=== PATIENT | male | born 1980 | race Caucasian/White ===

== ENCOUNTER 2020-03-16 08:12 | Emergency (ER) | payer OTHER ==
[~2020-03-16] VITALS: Ht 172.7 cm; Wt 75.3 kg
[~2020-03-16 08:12] MED LIST: DIAZ5TAB49 PO; ENLP10T PO; PANT40TA2 PO
--- NOTE | 2020-03-16 08:48 | ED Abdominal Pain ---
General Chief Complaint: General Problems/Pain Stated Complaint: BACK AND ABD PAIN Nursing Triage Note: PT AMB TO [facility] 5 WITH COMPLAINT OF LOW BACK PAIN AND INDIGESTION/ABD PAIN. STATES HAS HAD INDIGESTION FOR 1.5 WEEKS THAT STARTED ABOVE THE UMBILICUS AND HAS NOW MOVED DOWN TO [facility]. Sepsis Screen: No Definite Risk Source of Information: Patient History of Present Illness Date Seen by Provider: March 16, 2020 Time Seen by Provider: 08:21 Initial Comments PT ARRIVES VIA POV FROM HOME C/O DIFFUSE LOWER BACK PAIN--DOES HAVE HISTORY OF CHRONIC BACK PAIN C/O LEFT GROIN PAIN--RADIATES FROM UMBILICUS TO LEFT GROIN PAIN ONGOING FOR 1 1/2 WEEKS PAIN COMES AND GOES, IS WORSE WITH SITTING HAS NOT TAKEN ANYTHING FOR PAIN STATES HE HAS STARTED GOING TO THE GYM AGAIN IN THE LAST COUPLE OF WEEKS, BUT NO ACTUAL INJURY NO FEVER NO URINARY SYMPTOMS + NAUSEA, NO VOMITING. NORMAL BM TODAY NO PROBLEMS EATING OR DRINKING-HAD WATER JUST PRIOR TO ARRIVAL NO HISTORY OF SIMILAR HAS NOT TAKEN ANYTHING FOR PAIN NO PRIOR ABDOMINAL SURGERIES PCP: DR. FRYE--HAS SEEN ONCE TO ESTABLISH CARE. 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 Allergies and Home Medications Allergies Coded Allergies: No Known Drug Allergies (Unverified , 09/26/14) Home Medications Cyclobenzaprine HCl 10 Mg Tablet, 10 MG PO Q8H PRN for SPASMS Prescribed by: CHUY REDDY on 03/16/20 09 Diazepam 5 Mg Tablet, 5 MG PO PRN, (Reported) Enalapril Maleate 10 Mg Tab, 5 MG PO DAILY, (Reported) Meloxicam 15 Mg Tablet, 15 MG PO DAILY Prescribed by: CHUY REDDY on 03/16/20 0952 Pantoprazole Sodium 40 Mg Tablet.dr 40 MG PO DAILY Prescribed by: MARIELLA SLOAN on 10/09/15 1332 Patient Home Medication List Home Medication List Reviewed: Yes Review of Systems Review of Systems Constitutional: no symptoms reported Respiratory: No Symptoms Reported Cardiovascular: No Symptoms Reported Gastrointestinal: See HPI, Abdominal Pain; Denies Constipated, Denies Diarrhea; Nausea; Denies Poor Fluid Intake, Denies Vomiting Genitourinary: See HPI; Denies Burning, Denies Drainage, Denies Frequency; Flank Pain; Denies Hematuria, Denies Incontinence, Denies Pain, Denies Urgency Musculoskeletal: see HPI, back pain Skin: no symptoms reported; No rash Psychiatric/Neurological: No Symptoms Reported Endocrine: No Symptoms Reported Hematologic/Lymphatic: No Symptoms Reported Past Gcavkwt-Fquhpx-Sffcyz Hx Past Med/Social Hx: Reviewed and Corrections made Patient Social History Alcohol Use: Regular Use Recreational Drug Use: Yes (THC) Smoking Status: Never a Smoker Recent Foreign Travel: No Contact w/Someone Who Travel: No Recent Infectious Disease Expo: No Immunizations Up To Date Tetanus Booster (TDap): Unknown PED Vaccines UTD: Yes Seasonal Allergies Seasonal Allergies: Yes Past Medical History Surgeries: Yes (LEFT ACL RECONSTRUCTION AND REVISION, WISDOM TEETH; EGD 2014) Orthopedic Respiratory: No Cardiac: Yes Hypertension Neurological: No Genitourinary: No Gastrointestinal: Yes Gastroesophageal Reflux, Hiatal Hernia Musculoskeletal: Yes (RT HUMERUS BENIGN TUMOR;LEFT KNEE ACL SURGERY) Chronic Back Pain Endocrine: No HEENT: No Cancer: No Psychosocial: No Integumentary: No Blood Disorders: No Physical Exam Vital Signs Vital Signs - First Documented 03/16/20 08:20 Temp 36.3 Pulse 114 Resp 20 B/P (MAP) 152/120 (131) Pulse Ox 99 O2 Delivery Room Air Capillary Refill : Less Than 3 Seconds Height/Weight/BMI Height: 5'8.00" Weight: 147lbs. oz. 66.719268ki; 25.00 BMI Method:Stated General Appearance: WD/WN, no apparent distress, other (WALKS UPRIGHT AND MOVES QUICKLY WITHOUT DIFFICULTY. TALKS NON-STOP AT GREAT LENGTH) Neck: normal inspection Respiratory: normal breath sounds, no respiratory distress, no accessory muscle use Cardiovascular: regular rate, rhythm, no murmur Gastrointestinal: normal bowel sounds, soft, no organomegaly, no pulsatile mass; No distended, No guarding, No rebound; tenderness (MILD LLQ AND LEFT FLANK TENDERNESS); No hernia, No mass Extremities: normal inspection Back: no vertebral tenderness, CVA tenderness (L) Neurologic/Psychiatric: committee member II-XII nml as tested, no motor/sensory deficits, alert, normal mood/affect, oriented x 3 Skin: normal color, warm/dry; No rash Progress/Results/Core Measures Results/Orders Lab Results Laboratory Tests Test 03/16/20 08:50 03/16/20 09:19 Range/Units White Blood Count 8.0 4.3-11.0 10^3/uL Red Blood Count 4.98 4.35-5.85 10^6/uL Hemoglobin 15.2 13.3-17.7 G/DL Hematocrit 41 40-54 % Mean Corpuscular Volume 82 80-99 FL Mean Corpuscular Hemoglobin 31 25-34 PG Mean Corpuscular Hemoglobin Concent 37 H 32-36 G/DL Red Cell Distribution Width 12.7 10.0-14.5 % Platelet Count 284 130-400 10^3/uL Mean Platelet Volume 8.9 7.4-10.4 FL Neutrophils (%) (Auto) 77 H 42-75 % Lymphocytes (%) (Auto) 16 12-44 % Monocytes (%) (Auto) 7 0-12 % Eosinophils (%) (Auto) 1 0-10 % Basophils (%) (Auto) 0 0-10 % Neutrophils # (Auto) 6.2 1.8-7.8 X 10^3 Lymphocytes # (Auto) 1.2 1.0-4.0 X 10^3 Monocytes # (Auto) 0.6 0.0-1.0 X 10^3 Eosinophils # (Auto) 0.0 0.0-0.3 10^3/uL Basophils # (Auto) 0.0 0.0-0.1 10^3/uL Sodium Level 137 135-145 MMOL/L Potassium Level 3.9 3.6-5.0 MMOL/L Chloride Level 103 98-107 MMOL/L Carbon Dioxide Level 22 21-32 MMOL/L Anion Gap 12 5-14 MMOL/L Blood Urea Nitrogen 15 7-18 MG/DL Creatinine 1.19 0.60-1.30 MG/DL Estimat Glomerular Filtration Rate > 60 BUN/Creatinine Ratio 13 Glucose Level 111 H 70-105 MG/DL Calcium Level 9.6 8.5-10.1 MG/DL Corrected Calcium 8.5-10.1 MG/DL Total Bilirubin 1.5 H 0.1-1.0 MG/DL Aspartate Amino Transf (AST/SGOT) 23 5-34 U/L Alanine Aminotransferase (ALT/SGPT) 37 0-55 U/L Alkaline Phosphatase 80 40-136 U/L Total Protein 8.4 H 6.4-8.2 GM/DL Albumin 4.9 H 3.2-4.5 GM/DL Amylase Level 31 25-125 U/L Lipase 14 8-78 U/L Serum Alcohol < 10 <10 MG/DL Urine Color YELLOW Urine Clarity CLEAR Urine pH 6.0 5-9 Urine Specific [place] 1.010 L 1.016-1.022 Urine Protein NEGATIVE NEGATIVE Urine Glucose (UA) NEGATIVE NEGATIVE Urine Ketones NEGATIVE NEGATIVE Urine Nitrite NEGATIVE NEGATIVE Urine Bilirubin NEGATIVE NEGATIVE Urine Urobilinogen 0.2 < = 1.0 MG/DL Urine Leukocyte Esterase NEGATIVE NEGATIVE Urine RBC (Auto) NEGATIVE NEGATIVE Urine RBC NONE /HPF Urine WBC NONE /HPF Urine Squamous Epithelial Cells 0-2 /HPF Urine Crystals NONE /LPF Urine Bacteria NEGATIVE /HPF Urine Casts NONE /LPF Urine Mucus NEGATIVE /LPF Urine Culture Indicated NO Urine Opiates Screen NEGATIVE NEGATIVE Urine Oxycodone Screen NEGATIVE NEGATIVE Urine Methadone Screen NEGATIVE NEGATIVE Urine Propoxyphene Screen NEGATIVE NEGATIVE Urine Barbiturates Screen NEGATIVE NEGATIVE Ur Tricyclic Antidepressants Screen NEGATIVE NEGATIVE Urine Phencyclidine Screen NEGATIVE NEGATIVE Urine Amphetamines Screen NEGATIVE NEGATIVE Urine Methamphetamines Screen NEGATIVE NEGATIVE Urine Benzodiazepines Screen NEGATIVE NEGATIVE Urine Cocaine Screen NEGATIVE NEGATIVE Urine Cannabinoids Screen NEGATIVE NEGATIVE My Orders Orders - CHUY REDDY DO Ed Iv/Invasive Line Start (03/16/20 08:21) Amylase (03/16/20 08:21) Cbc With Automated Diff (03/16/20 08:21) Comprehensive Metabolic Panel (03/16/20 08:21) Drug Screen Stat (Urine) (03/16/20 08:21) Lipase (03/16/20 08:21) Ua Culture If Indicated (03/16/20 08:21) Acute Abd Series (03/16/20 08:21) Ct Abd/Pelvis Wo(Kidney Stone) (03/16/20 08:21) Alcohol (03/16/20 08:26) Ketorolac Injection (Toradol Injection) (03/16/20 09:30) Ed Iv/Invasive Line Start (03/16/20 09:18) Lactated Ringers (Lr 1000 Ml Iv Solution (03/16/20 09:18) Medications Given in ED Vital Signs/I&O 03/16/20 03/16/20 08:20 10:10 Temp 36.3 Pulse 114 76 Resp 20 19 B/P (MAP) 152/120 (131) 126/78 Pulse Ox 99 98 O2 Delivery Room Air Room Air Blood Pressure Mean: 131 Progress Progress Note : Progress Note UNEVENTFUL ER STAY SYMPTOMS IMPROVED AT DISMISSAL Diagnostic Imaging Comments CT ABDOMEN/PELVIS--PER RADIOLOGIST REPORT AT [address]: [address] evidence of an acute inflammatory or obstructive process within the abdomen or pelvis. 2. No findings of urolithiasis or hydronephrosis. 3. No evidence of bowel obstruction. The appendix is normal. There is no focal inflammation within the omentum or mesentery. There are no findings of free fluid. ABDOMEN XRAYS--PER RADIOLOGIST REPORT AT 0916 IMPRESSION: The bowel gas pattern is nonspecific. There is no acute abnormality identified. Reviewed: Reviewed by Me Departure Impression Primary Impression: Lower back pain Additional Impressions: Left lower quadrant abdominal pain Muscle strain Disposition: HOME, SELF-CARE Condition: Stable Departure-Patient Inst. Referrals: SANTA FRYE MD (PCP/Family) Primary Care Physician Patient Instructions: Abdominal Muscle Strain (DC), Acute Abdomen (Belly Pain), Adult (DC), Back Muscle Strain (DC), Low Back Pain (DC) Add. Discharge Instructions: MOST HEAT TO SORE AREAS AT 20 MINUTE INTERVALS NO LIFTING OR TWISTING OR BENDING AT THE WAIST X 1 WEEK FOLLOW UP WITH YOUR DR IN 1 WEEK IF NO BETTER All discharge instructions reviewed with patient and/or family. Voiced understanding. Scripts Meloxicam (Mobic) 15 Mg Tablet 15 MG PO DAILY, #10 TAB Prov: CHUY REDDY DO 03/16/20 Cyclobenzaprine HCl (Cyclobenzaprine HCl) 10 Mg Tablet 10 MG PO Q8H PRN for SPASMS, #15 TAB 0 Refills Prov: CHUY REDDY DO 03/16/20 CHUY REDDY DO March 16, 2020 08:48
[2020-03-16 08:59] LABS: BASOPHILS % (AUTO) 0 % (0-10); EOSINOPHILS % (AUTO) 1 % (0-10); HEMATOCRIT 41 % (40-54); HEMOGLOBIN 15.2 G/DL (13.3-17.7); LYMPHOCYTES # (AUTO) 1.2 X 10^3 (1.0-4.0); LYMPHOCYTES % (AUTO) 16 % (12-44); MEAN CORPUSCULAR HEMOGLOBIN 31 PG (25-34); MEAN CORPUSCULAR HGB CONC 37 G/DL (32-36); MEAN CORPUSCULAR VOLUME 82 FL (80-99); MEAN PLATELET VOLUME 8.9 FL (7.4-10.4); MONOCYTES # (AUTO) 0.6 X 10^3 (0.0-1.0); MONOCYTES % (AUTO) 7 % (0-12); NEUTROPHILS # (AUTO) 6.2 X 10^3 (1.8-7.8); NEUTROPHILS % (AUTO) 77 % (42-75); PLATELET COUNT 284 10^3/uL (130-400); RED CELL DISTRIBUTION WIDTH 12.7 % (10.0-14.5)
[2020-03-16 09:08] LABS: ALBUMIN 4.9 GM/DL (3.2-4.5); CHLORIDE 103 MMOL/L (98-107); POTASSIUM 3.9 MMOL/L (3.6-5.0); SODIUM 137 MMOL/L (135-145)
[2020-03-16 09:09] LABS: AMYLASE 31 U/L (25-125); CALCIUM 9.6 MG/DL (8.5-10.1)
--- NOTE | 2020-03-16 09:10 | Diagnostic Imaging Report ---
PROCEDURE: CT urinary tract, rule out kidney stone. TECHNIQUE: Multiple contiguous axial images were obtained through the abdomen and pelvis without the use of intravenous contrast. Auto Exposure Controls were utilized during the CT exam to meet ALARA standards for radiation dose reduction. INDICATION: Abdominal pain. FINDINGS: The lung bases demonstrate no focal infiltrate or consolidation. There is no pleural or pericardial effusion. The liver demonstrates no evidence of a focal intrahepatic abnormality. The gallbladder is nondistended without radiodense gallstones. No findings of biliary dilatation. The spleen is normal in size. There is no adjacent fluid. The pancreas unremarkable without associated fat stranding or ductal dilatation. There is no adrenal mass. The kidneys appear nonobstructed. There are no findings of a stone within the kidneys or within the ureters. There is no stone evident within the urinary bladder. No periureteric or perinephric fat stranding evident. There are no findings of abnormal small or large bowel dilation. There is no abnormal bowel thickening or evidence of focal inflammation within the omentum or mesentery. The appendix is well-visualized and is normal. No free air free fluid or abscess. There is no pathologic abdominal or pelvic lymph node enlargement The aorta is normal in caliber. No acute or suspicious osseous abnormality demonstrated. IMPRESSION: 1. No CT evidence of an acute inflammatory or obstructive process within the abdomen or pelvis. 2. No findings of urolithiasis or hydronephrosis. 3. No evidence of bowel obstruction. The appendix is normal. There is no focal inflammation within the omentum or mesentery. There are no findings of free fluid. Dictated by: Dictated on workstation # [id number]
[2020-03-16 09:11] LABS: GLUCOSE 111 MG/DL (70-105); TOTAL PROTEIN 8.4 GM/DL (6.4-8.2)
[2020-03-16 09:12] LABS: BILIRUBIN,TOTAL 1.5 MG/DL (0.1-1.0); CARBON DIOXIDE 22 MMOL/L (21-32)
[2020-03-16 09:14] LABS: ALKALINE PHOSPHATASE 80 U/L (40-136); CREATININE SERUM 1.19 MG/DL (0.60-1.30); GFR ESTIMATED > 60
--- NOTE | 2020-03-16 09:14 | Diagnostic Imaging Report ---
EXAMINATION: Acute abdomen series at 9:10 AM INDICATION: Abdominal pain The accompanying erect PA chest shows the heart size to be within normal limits. The lungs are clear. There is no sign of a pneumoperitoneum. Supine and erect views of the abdomen were obtained. There is gas in both the large and small bowel in a nonspecific fashion. There is no evidence for bowel obstruction. There is no mass, organomegaly or pathological calcification evident. The osseous structures are intact. IMPRESSION: The bowel gas pattern is nonspecific. There is no acute abnormality identified. Dictated by: Dictated on workstation # [id number]
[2020-03-16 09:15] LABS: BUN/CREATININE RATIO 13
[2020-03-16 09:17] LABS: ALANINE AMINOTRANSFERASE 37 U/L (0-55)
[2020-03-16 09:18] LABS: LIPASE 14 U/L (8-78)
[2020-03-16] MEDS ORDERED: LACTATED RINGERS 1,000 ML IV ONE (09:18)
[2020-03-16 09:26] LABS: BILIRUBIN,URINE NEGATIVE (NEGATIVE); CLARITY,URINE CLEAR; COLOR,URINE YELLOW; GLUCOSE, URINE (UA) NEGATIVE (NEGATIVE); KETONES,URINE NEGATIVE (NEGATIVE); LEUKOCYTE ESTERASE ,URINE NEGATIVE (NEGATIVE); NITRITE,URINE NEGATIVE (NEGATIVE); PROTEIN,URINE NEGATIVE (NEGATIVE)
[2020-03-16] MEDS ORDERED: KETOROLAC 30 MG/ML VIAL IVP ONE (09:30)
[2020-03-16 09:32] LABS: BACTERIA,URINE NEGATIVE /HPF; SQUAMOUS EPITHELIAL CELL,UR 0-2 /HPF
[2020-03-16 09:38] LABS: AMPHETAMINE SCREEN, URINE NEGATIVE (NEGATIVE); BARBITURATE SCREEN URINE NEGATIVE (NEGATIVE); BENZODIAZEPINES SCREEN URINE NEGATIVE (NEGATIVE); CANNABINOID SCREEN, URINE NEGATIVE (NEGATIVE); COCAINE SCREEN URINE NEGATIVE (NEGATIVE); METHADONE STAT NEGATIVE (NEGATIVE); METHAMPHETAMINE SCREEN URINE S NEGATIVE (NEGATIVE); OPIATE SCREEN URINE NEGATIVE (NEGATIVE); OXYCODONE STAT NEGATIVE (NEGATIVE); PROPOXYPHENE STAT NEGATIVE (NEGATIVE); TRICYCLIC ANTIDEPRESSANTS SCRE NEGATIVE (NEGATIVE)
[2020-03-16] MEDS ORDERED: MELO15TA14 PO ×2 (09:49→09:52)
[2020-03-16] MEDS ORDERED: CYCL10TA9 PO ×2 (09:49→09:52)
[2020-03-16 10:10] VITALS: BP 126/78
== END 2020-03-16 10:10 | disposition home or self-care (01) ==
LOC: EDUNIT# 08:12 → ER 08:14
DX: S39.011A Strain of muscle, fascia and tendon of abdomen, initial encounter (principal); S39.012A Strain of muscle, fascia and tendon of lower back, initial encounter; I10 Essential (primary) hypertension; K21.9 Gastro-esophageal reflux disease without esophagitis; X58.XXXA Exposure to other specified factors, initial encounter
CPT/HCPCS: 36415; 74022; 74176; 80053; 80306; 80320; 81000; 82150; 83690; 85025

== ENCOUNTER → 2020-09-24 | Outpatient (CLI) | payer OTHER ==
[~2020-09-24] MED LIST changes: +CYCL10TA9 PO; +MELO15TA14 PO
--- NOTE | 2020-09-24 10:13 | Diagnostic Imaging Report ---
CLINICAL INDICATION: Patient status post fall approximately 3 months ago. Patient with pain in posterior upper cervical region and right side of the neck. EXAM: X-ray of the cervical spine, 3 views. COMPARISON: None. FINDINGS: There is no evidence of acute cervical spine fracture or dislocation. There is straightening of the cervical spine posture. There is mildly hypertrophic anterior spurs at the C5-C6 level anteriorly. The intervertebral disk heights are within normal limits. There is no prevertebral soft tissue thickening. Odontoid view shows no significant abnormality. IMPRESSION: 1: Mild cervical spine degenerative disease with no acute fracture or dislocation. 2: There is straightening of the cervical spine posture which is nonspecific, but may be seen with patient positioning or muscle spasm. Dictated by: Dictated on workstation # [id number]
== END ==
LOC: RAD 09:32
PROVIDERS: ATTEND Family Medicine
DX: M47.812 Spondylosis without myelopathy or radiculopathy, cervical region (principal); Z91.81 History of falling
CPT/HCPCS: 72040

== ENCOUNTER 2021-04-20 09:29 | Outpatient (RCR) | payer OTHER ==
[~2021-04-20] VITALS: Ht 172.7 cm; Wt 78.2 kg
[2021-04-21] MEDS ORDERED: SUCR1TAB36 PO (08:27)
[2021-04-21] MEDS ORDERED: ERGO1250 PO (08:27)
[2021-04-21] MEDS ORDERED: RIBO50TA PO (08:27)
[2021-04-21] MEDS ORDERED: MAGN400T39 PO (08:27)
[2021-04-21] MEDS ORDERED: ENAL20TA16 PO (08:27)
== END 2021-04-21 14:08 | disposition home or self-care (01) ==
LOC: PREOP 09:29
PROVIDERS: ATTEND Surgery
DX: Z01.818 Encounter for other preprocedural examination (principal)

== ENCOUNTER → 2021-04-21 | Outpatient (CLI) | payer OTHER ==
[~2021-04-21] MED LIST changes: +ENAL20TA16 PO; +ERGO1250 PO; +MAGN400T39 PO; +RIBO50TA PO; +SUCR1TAB36 PO
== END ==
LOC: LABNPT 08:36
PROVIDERS: ATTEND Family Medicine
DX: Z20.822 Contact with and (suspected) exposure to COVID-19 (principal)
CPT/HCPCS: 87635

== ENCOUNTER 2021-04-23 10:18 | Day surgery (SDC) | payer OTHER ==
[~2021-04-23] VITALS: Ht 172.7 cm; Wt 78.2 kg
[2021-04-23] VITALS (13 sets, daily range): BP systolic 118–160; BP diastolic 55–83
[2021-04-23] MEDS ORDERED: NS IV 500 ML 500 ML ONE (10:24)
[2021-04-23] MEDS ORDERED: HURRICAINE EXT TUBE (BENZOCAINE) XX PRN (10:30)
[2021-04-23] MEDS ORDERED: fentaNYL INJ 100 MCG/2 ML AMP IVP ONE (10:30)
[2021-04-23] MEDS ORDERED: NS IV 500 ML 500 ML IV PRN (10:30)
[2021-04-23] MEDS ORDERED: MIDAZOLAM 5 MG/5 ML (VERSED) VIAL IV ONE (10:30)
[2021-04-23] MEDS ORDERED: LIDOCAINE JELLY 2% 6 ML SYRINGE MM PRN (10:30)
--- NOTE | 2021-04-23 11:24 | Conscious Sedation/ASA ---
Conscious Sedation Pre-Proced Time 11:00 ASA Score 2 For ASA 3 and 4: Consider anesthesia and medical clearance. Also, for patients with a history of failed moderate sedation consider anesthesia. Airway Lungs Heart ASA score ASA 1: a normal healthy patient ASA 2: a patient with a mild systemic disease (mid diabetes, controlled hypertension, obesity ASA 3: a patient with a severe systemic disease that limits activity (angina, COPD, prior Myocardial infarction) ASA 4: a patient with an incapacitating disease that is a constant threat to life (CHF, renal failure) ASA 5: a moribund patient not expected to survive 24 hrs. (ruptured aneurysm) ASA 6: a declared brain- patient whose organs are being harvested. For emergent operations, add the letter E after the classification Mallampati Classification Grade 2 Sedation Plan Analgesia, Amnesia, Plan communicated to team members, Discussed options with patient/fam, Discussed risks with patient/fam The patient is an appropriate candidate to undergo the planned procedure, sedation, and anesthesia. The patient immediately re-assessed prior to indication. MARIELLA SLOAN MD Apr 23, 2021 11:24
--- NOTE | 2021-04-23 11:25 | Progress Note-Pre Operative ---
Pre-Operative Progress Note H&P Reviewed The H&P was reviewed, patient examined and no changes noted. Date Seen by Provider: Apr 23, 2021 Time Seen by Provider: 11:00 Date H&P Reviewed: Apr 23, 2021 Time H&P Reviewed: 11:00 Pre-Operative Diagnosis: GERD, dysphagia MARIELLA SLOAN MD Apr 23, 2021 11:25
--- NOTE | 2021-04-23 11:25 | Discharge Inst-Surgical ---
D/C Lap Instructions-LUTHER Follow Up Activity as tolerated High Fiber Diet 25g or more per day Avoid Alcohol, Caffeine, Spicy [place] and Acid foods. Drink 64 fluid oz or more of fluids per day. Symptoms to Report: Fever over 101 degree F, Nausea/Vomiting If any problems/questions: Contact your physician or go to Emergency Room MARIELLA SLOAN MD Apr 23, 2021 11:25
[2021-04-23] MEDS ORDERED: MIDAZOLAM 5 MG/5 ML (VERSED) VIAL ONE (12:09)
--- NOTE | 2021-04-23 13:04 | Progress Note-Post Operative ---
Post-Operative Progess Note Surgeon (s)/Gear And Spline Grinder (s) Surgeon MARIELLA SLOAN MD Gear And Spline Grinder: none Pre-Operative Diagnosis GERD, dysphagia Post-Operative Diagnosis reflux esophagitis(stage 2-3), mild distal esophageal stricture, small HH(2cm), moderate gastritis. Procedure & Operative Findings Date of Procedure 04/23/21 Procedure Performed/Findings EGD with bx and balloon dilatation. Anesthesia Type cs Estimated Blood Loss Estimated blood loss (mL): minimal Specimens/Packing Specimens Removed ge jxn, antrum MARIELLA SLOAN MD Apr 23, 2021 13:04
--- NOTE | 2021-04-23 16:02 | OPERATIVE REPORT ---
DATE OF SERVICE: 04/23/2021 ATTENDING PRIMARY CARE PHYSICIAN: Rosanna Colmenares MD PREOPERATIVE DIAGNOSES: Gastroesophageal reflux disease and dysphagia. POSTOPERATIVE DIAGNOSES: Reflux esophagitis between stage II and III with a mild distal esophageal stricture. Small hiatal hernia; however, larger than the one detected on previous upper endoscopy approximately 2 cm in size. Moderate gastritis. No distal obstructions. PROCEDURE: EGD with biopsy and balloon dilatation. SURGEON: Mariella Sloan MD. ANESTHESIA: Conscious sedation. ESTIMATED BLOOD LOSS: Minimal. FINDINGS: Reflux esophagitis between stage II and III with a mild distal esophageal stricture. Small hiatal hernia; however, larger than the one detected on previous upper endoscopy approximately 2 cm in size. Moderate gastritis. No distal obstructions. DISPOSITION: The patient tolerated the procedure well. INDICATIONS: The patient is a 40-year-old male known to us. He has had issues with reflux and epigastric pain for years and underwent an EGD in 2014 and found to have a reflux esophagitis stage II and a small hiatal hernia, 1 cm in size. He also did have a severe gastritis at that time. He reports that he has had some epigastric tightness sensation as well as burning sensation in the epigastric region. He also reports that he has had some difficulty swallowing of some types of foods as well. DESCRIPTION OF PROCEDURE: The patient was brought to the endoscopy suite, laid in left lateral decubitus position. After adequate IV pain and sedative medications and conscious sedation anesthesia, the mouthpiece was applied. The endoscope was placed in the mouth, visualizing the pharynx and hypopharyngeal region. Vocal cords, epiglottis and vallecula identified and appeared to be normal. The endoscope was then gently intubated at the esophageal opening and esophagus insufflated. The endoscope was then advanced to the first, second and third portion of esophagus at the level of the GE junction, a reflux esophagitis between stage II and III identified as well as a mild distal esophageal stricture and Schatzki's ring. A biopsy was taken with forceps with visualization of good hemostasis. The endoscope was then advanced into the stomach and endoscope retroflexed, visualizing, small hiatal hernia; however, slightly larger than the one detected in 2015. This was approximately 2 cm in size. There was a moderate severity gastritis more focused towards the stomach antrum. No formal ulcerations, polyps, or any neoplasms. A biopsy was taken of the antrum to rule out H. pylori with visualization of good hemostasis. The endoscope was then advanced to the pylorus and the first and second portion of the duodenum, which appeared normal. No distal obstructions. The balloon was then placed into the stomach and pulled back to the area of the stricture and then we proceeded in a gradual stepwise fashion 2, 4, then 6 atmospheres of pressure with mild to moderate resistance and left this in place for 60 seconds. The balloon was then desufflated and removed with visualization of good hemostasis as well as no mucosal tears. Endoscope was then slowly withdrawn while taking a second look and suctioning of residual air with no additional findings. The patient tolerated the procedure well. We will recommend continued medical management with necessary lifestyle and diet accommodation including small and more frequent meals, avoidance of eating at night as well as head elevation while lying supine. He also needs to avoid caffeinated beverages, spicy, greasy and acidic foods and continue to take the Protonix daily. Job ID: [id number] DocumentID: [id number] Dictated Date: 04/23/2021 12:27:24 Maintenance Superintendent Date: 04/23/2021 16:00:59 Dictated By: MARIELLA SLOAN MD
== END 2021-04-23 12:53 | disposition home or self-care (01) ==
LOC: ENDO 10:18
PROVIDERS: ATTEND Surgery
DX: K21.00 Gastro-esophageal reflux disease with esophagitis, without bleeding (principal); K22.2 Esophageal obstruction; K44.9 Diaphragmatic hernia without obstruction or gangrene; K29.70 Gastritis, unspecified, without bleeding; I10 Essential (primary) hypertension; Z79.899 Other long term (current) drug therapy

== ENCOUNTER → 2021-09-27 | Outpatient (CLI) | payer OTHER ==
[~2021-09-27] MED LIST changes: +CYCL10TA25 PO; -CYCL10TA9 PO
--- NOTE | 2021-09-27 14:11 | Diagnostic Imaging Report ---
PROCEDURE: CT sinuses without contrast TECHNIQUE: Multiple contiguous axial images were obtained through the sinuses without the use of intravenous contrast. Coronal and sagittal reformations were then performed. Auto Exposure Controls were utilized during the CT exam to meet ALARA standards for radiation dose reduction. INDICATION: Cough and congestion with sinus drainage. FINDINGS: The paranasal sinuses are all well aerated. There is no mucosal thickening. There are no air-fluid levels. The ostiomeatal complexes appear normal bilaterally. There is mild deviation of the nasal septum to the left. The nasal turbinates show some mucosal edema of the right inferior nasal turbinate. No bony abnormality is noted. IMPRESSION: 1. Paranasal sinuses are clear. 2. Mild deviation of the nasal septum to the left with some mucosal edema of the right inferior nasal turbinate. Dictated by: Dictated on workstation # [id number]
== END ==
LOC: RAD 13:00
PROVIDERS: ATTEND Family Medicine
DX: J34.89 Other specified disorders of nose and nasal sinuses (principal); J34.2 Deviated nasal septum
CPT/HCPCS: 70486

== ENCOUNTER → 2022-03-02 | Outpatient (CLI) | payer OTHER | LOC: CARD 10:22 | PROVIDERS: ATTEND Family Medicine | DX: I49.9 Cardiac arrhythmia, unspecified (principal) | CPT/HCPCS: 93005 ==

== ENCOUNTER 2022-08-30 23:39 | Emergency (ER) | payer OTHER ==
[~2022-08-30] VITALS: Ht 172.7 cm; Wt 79.4 kg
--- NOTE | 2022-08-30 23:54 | ED Fall/Injury ---
General Stated Complaint: FALL - NOSE PAIN History of Present Illness Date Seen by Provider: Aug 30, 2022 Time Seen by Provider: 23:50 Initial Comments 41-year-old male is here with complaints of a nasal injury which occurred 30 minutes prior to coming to the ER, where he fell and hit the bridge of his nose on the edge of his table at home. Patient had some nasal bleeding for which he took paper towel stuffed up his nostrils. Patient complains that his nose is now crooked. Denies head strike, LOC, blurry vision, nausea and vomiting, breathing difficulty. Allergies and Home Medications Allergies Coded Allergies: No Known Drug Allergies (Unverified , 09/26/14) Patient Home Medication List Home Medication List Reviewed: Yes Enalapril Maleate (Enalapril Maleate) 20 Mg Tablet, 20 MG PO DAILY, (Reported) Entered as Reported by: JARRED FRANCO on 04/21/21826 Ergocalciferol (Vitamin D2) (Vitamin D2) 1,250 Mcg Capsule, 1,250 MCG PO DAILY, (Reported) Entered as Reported by: JARRED FRANCO on 04/21/21826 Magnesium Oxide (Magnesium) 400 Mg Tablet, 400 MG PO DAILY, (Reported) Entered as Reported by: JARRED FRANCO on 04/21/21826 Pantoprazole Sodium (Protonix) 40 Mg Tablet.dr, 40 MG PO DAILY Prescribed by: MARIELLA SLOAN on 10/09/15 1332 Riboflavin (Riboflavin) 50 Mg Tablet, 50 MG PO DAILY, (Reported) Entered as Reported by: JARRED FRANCO on 04/21/21826 Sucralfate (Carafate) 1 Gm Tablet, 1 GM PO QID, (Reported) Entered as Reported by: JARRED FRANCO on 04/21/21826 Review of Systems Review of Systems Constitutional: no symptoms reported Eyes: No Symptoms Reported Ears, Nose, Mouth, Throat: see HPI, nose pain, epistaxis Respiratory: no symptoms reported Cardiovascular: no symptoms reported Gastrointestinal: no symptoms reported Genitourinary: no symptoms reported Musculoskeletal: no symptoms reported Skin: no symptoms reported Psychiatric/Neurological: No Symptoms Reported Past Ffzrgjz-Dcgusm-Jjazik Hx Immunizations Up To Date Tetanus Booster (TDap): Unknown PED Vaccines UTD: Yes Seasonal Allergies Seasonal Allergies: Yes Past Medical History Surgeries: Yes (LEFT ACL RECONSTRUCTION AND REVISION, WISDOM TEETH; EGD 2014) Orthopedic Respiratory: No Cardiac: Yes Hypertension Neurological: No Genitourinary: No Gastrointestinal: Yes Gastroesophageal Reflux, Hiatal Hernia Musculoskeletal: Yes (RT HUMERUS BENIGN TUMOR;LEFT KNEE ACL SURGERY) Chronic Back Pain Endocrine: No HEENT: No Cancer: No Psychosocial: No Integumentary: No Blood Disorders: No Physical Exam Vital Signs Vital Signs - First Documented 08/30/22 23:48 Temp 36.3 Pulse 103 Resp 22 B/P (MAP) 156/107 (123) Pulse Ox 98 Capillary Refill : Height, Weight, BMI Height: 5'8.00" Weight: 147lbs. oz. 66.236208nw; 26.21 BMI Method:Stated General Appearance: WD/WN, no apparent distress HEENT: PERRL/EOMI, other (deformity of nose , dried blood in both nostrils, no active bleeding. 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 NASAL INJURY - CT MAXILLOFACIAL: Comminuted nasal fracture - Percocet once STAT in ER - Tdap STAT, last tetanus was over 10 years ago -Advised not to blow his nose, or manually remove dried blood inside his nostrils. - Advised nasal saline mist - Ibuprofen and Tylenol for pain/ ice - Follow up with ENT clinic within 3 to 7 days -The patient was seen in the ED, and treated appropriately to presentation at a specific point in time. Patient is informed that there is a possibility that disease and illness can evolve and change in acuity rapidly or slowly after patient is discharged from the ER. Precautionary advice given to the patient for immediate return to ER if symptoms worsen or do not resolve, and to seek emergency care sooner rather than later. Pt also advised on the importance of PCP follow up and compliance with management and follow up plan with PCP and/or specialist, as this is part of the management plan. Pt verbally expressed understanding. Diagnostic Imaging Diagonstic Imaging: CT Plain Films/CT/US/NM/MRI: facial bones Departure Impression Primary Impression: Nasal fracture Qualified Codes: S02.2XXA - Fracture of nasal bones, initial encounter for closed fracture Disposition: HOME, SELF-CARE Condition: Stable Departure-Patient Inst. Referrals: SERGIO CROONA DO (PCP/Family) Primary Care Physician Patient Instructions: Nose Fracture ED, Rinsing Out Your Nose With Salt Water Add. Discharge Instructions: -Advised not to blow his nose, or manually remove dried blood inside his nostrils. - Advised nasal saline mist - Ibuprofen and Tylenol for pain/ ice - Follow up with ENT clinic within 3 to 7 days NANDINI FISHER MD Aug 30, 2022 23:54
[2022-08-31] MEDS ORDERED: oxyCODONE/APAP 5/325MG (PERCOCET 5) TABLET PO ONE (02:45)
[2022-08-31] MEDS ORDERED: TETANUS,DIPTH,PERTUSS P/F (BOOSTRIX) 0.5 ML VIAL IM ONE (02:45)
[2022-08-31 02:50] VITALS: BP 136/90
--- NOTE | 2022-08-31 06:00 | Diagnostic Imaging Report ---
PROCEDURE: CT maxillofacial without contrast. TECHNIQUE: Multiple contiguous axial images were obtained through the facial bones without the use of intravenous contrast. Auto Exposure Controls were utilized during the CT exam to meet ALARA standards for radiation dose reduction. INDICATION: Nasal deformity, pain COMPARISON: 09/27/2021 FINDINGS: Acute mildly displaced bilateral nasal bone fractures are identified with associated overlying soft tissue swelling. These are both slightly displaced to the left. Mild S-shaped curvature of the nasal septum, though the nasal septum appears intact. No additional acute facial fracture. Lamina papyracea are intact. The paranasal sinuses are essentially clear. The orbits are unremarkable. Parapharyngeal fat is symmetric and well-maintained. Muscles of mastication is unremarkable. IMPRESSION: Acute minimally comminuted and minimally leftward displaced bilateral nasal bone fractures with associated overlying soft tissue swelling. Agree with preliminary interpretation. Dictated by: Dictated on workstation # [id number]
== END 2022-08-31 02:52 | disposition home or self-care (01) ==
LOC: EDUNIT# 23:39 → ER 23:40
DX: S02.2XXA Fracture of nasal bones, initial encounter for closed fracture (principal); Z28.310 Unvaccinated for COVID-19; W18.30XA Fall on same level, unspecified, initial encounter; W22.03XA Walked into furniture, initial encounter; Y92.009 Unspecified place in unspecified non-institutional (private) residence as the place of occurrence of the external cause
CPT/HCPCS: 70486; 90715

== ENCOUNTER 2023-06-27 04:11 | Emergency (ER) | payer OTHER ==
[~2023-06-27] VITALS: Ht 172.7 cm; Wt 83.0 kg
[~2023-06-27 04:11] MED LIST changes: +ENAL-70 PO; -ENAL20TA16 PO
--- NOTE | 2023-06-27 05:04 | ED General ---
General Chief Complaint: Trauma-Non Activation Stated Complaint: FALL OUT OF BED,HIT HEAD,LIGHT SENSITIVE Nursing Triage Note: TO ED VIA POV AND W/C TO ROOM 6 WITH C/O FALLING OUT OF BED AND HITTING BACK OF HEAD ON END TABLE AT APPROX 0300. PT IS VERY SLOW TO ANSWER, BUT ANSWERS NAME, , MONTH, YEAR, TIME, PLACE, SITUATION APPROPRIATELY. PER THEY WERE BOTH ASLEEP AND SHE WAS WOKE UP BY A NOISE AND FOUND PT ON FLOOR WITH CPAP STILL IN PLACE. PT STATES SEVERAL TIMES THROUGHOUT TRIAGE "MY HEAD FEELS FUNNY". C/O NAUSEA, DIZZINESS, LIGHT SENSITIVITY. DENIES NECK PAIN. PT STATES HE DRINKS "EVERY OTHER DAY" AND SMOKES MARIJUANA OCCASIONALLY, BUT NEITHER ETOH OR MARIJUANA WAS CONSUMED LAST NIGHT AND DENIES ANY SLEEP AID PRIOR TO GOING TO BED. Source of Information: Patient, Family Exam Limitations: No Limitations History of Present Illness Date Seen by Provider: Jun 27, 2023 Time Seen by Provider: 04:25 Initial Comments This 42-year-old gentleman presents to the emergency room by private vehicle after suffering a head injury when he fell out of bed. He was wearing CPAP and struggles with finding a comfortable position due to a labral injury in his shoulder. While adjusting himself in bed, he fell and somehow struck his head. He did not lose consciousness but does have symptoms of concussion including nausea, dizziness, confusion, and headache. He is ambulatory. He denies any other injury. Staff noted he was wobbly when standing in the waiting room. He drinks alcohol about 3 or 4 days of the week. He did not drink alcohol tonight. He is notably hypertensive. He is due for his blood pressure medications soon. C-collar was applied after patient developed pain in his neck not initially noticed. Allergies and Home Medications Allergies Coded Allergies: No Known Drug Allergies (Unverified , 09/26/14) Patient Home Medication List Home Medication List Reviewed: Yes Enalapril Maleate (Enalapril Maleate) 20 Mg Tablet, 20 MG PO DAILY, (Reported) Entered as Reported by: JARRED FRANCO on 04/21/21826 Ergocalciferol (Vitamin D2) (Vitamin D2) 1,250 Mcg Capsule, 1,250 MCG PO DAILY, (Reported) Entered as Reported by: JARRED FRANCO on 04/21/21826 Magnesium Oxide (Magnesium) 400 Mg Tablet, 400 MG PO DAILY, (Reported) Entered as Reported by: JARRED FRANCO on 04/21/21826 Pantoprazole Sodium (Protonix) 40 Mg Tablet.dr, 40 MG PO DAILY Prescribed by: MARIELLA SLOAN on 10/09/15 1332 Riboflavin (Riboflavin) 50 Mg Tablet, 50 MG PO DAILY, (Reported) Entered as Reported by: JARRED FRANCO on 04/21/21826 Sucralfate (Carafate) 1 Gm Tablet, 1 GM PO QID, (Reported) Entered as Reported by: JARRED FRANCO on 04/21/21826 Review of Systems Review of Systems Constitutional: no symptoms reported EENTM: no symptoms reported Respiratory: no symptoms reported Cardiovascular: no symptoms reported Gastrointestinal: see HPI Genitourinary: no symptoms reported Musculoskeletal: see HPI Skin: no symptoms reported Psychiatric/Neurological: See HPI Hematologic/Lymphatic: No Symptoms Reported Immunological/Allergic: no symptoms reported Past Jrkbgul-Rldtbt-Roiqsv Hx Patient Social History Tobacco Use?: No Substance use?: Yes Substance type: Marijuana Substance frequency: Once in a while Alcohol Use?: Yes Alcohol Frequency: Couple times a week Immunizations Up To Date Tetanus Booster (TDap): Unknown PED Vaccines UTD: Yes First/Initial COVID19 Vaccinat: YES Second COVID19 Vaccination Fred: YES Third COVID19 Vaccination Date: YES Seasonal Allergies Seasonal Allergies: Yes Past Medical History Surgeries: Yes (LEFT ACL RECONSTRUCTION AND REVISION, WISDOM TEETH; EGD 2014) Orthopedic Respiratory: No Cardiac: Yes Hypertension Neurological: No Genitourinary: No Gastrointestinal: Yes Gastroesophageal Reflux, Hiatal Hernia Musculoskeletal: Yes (RT HUMERUS BENIGN TUMOR;LEFT KNEE ACL SURGERY) Chronic Back Pain Endocrine: No HEENT: No Cancer: No Psychosocial: No Integumentary: No Blood Disorders: No Physical Exam Vital Signs Vital Signs - First Documented Capillary Refill : Less Than 3 Seconds Height, Weight, BMI Height: 5'8.00" Weight: 147lbs. oz. 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, Other (alert and oriented but cognition significanly dulled and slow) Skin: Normal Color, Warm/Dry Progress/Results/Core Measures Suspected Sepsis Recent Fever Within 48 Hours: No Infection Criteria Present: None New/Unexplained Altered Menta: No SIRS Temperature: Pulse: 80 Respiratory Rate: 16 Laboratory Tests 06/27/23 04:48: White Blood Count 5.8 Blood Pressure 189 /117 Mean: 141 Laboratory Tests 06/27/23 04:48: Creatinine 1.49H, Platelet Count 241, Total Bilirubin 1.1H Results/Orders Lab Results Laboratory Tests Test 06/27/23 04:48 Range/Units White Blood Count 5.8 4.3-11.0 10^3/uL Red Blood Count 4.44 4.30-5.52 10^6/uL Hemoglobin 13.9 13.3-17.7 g/dL Hematocrit 38 L 40-54 % Mean Corpuscular Volume 86 80-99 fL Mean Corpuscular Hemoglobin 31 25-34 pg Mean Corpuscular Hemoglobin Concent 37 H 32-36 g/dL Red Cell Distribution Width 11.9 10.0-14.5 % Platelet Count 241 130-400 10^3/uL Mean Platelet Volume 9.2 9.0-12.2 fL Immature Granulocyte % (Auto) 0 % Neutrophils (%) (Auto) 53 42-75 % Lymphocytes (%) (Auto) 37 12-44 % Monocytes (%) (Auto) 7 0-12 % Eosinophils (%) (Auto) 2 0-10 % Basophils (%) (Auto) 1 0-10 % Neutrophils # (Auto) 3.1 1.8-7.8 10^3/uL Lymphocytes # (Auto) 2.1 1.0-4.0 10^3/uL Monocytes # (Auto) 0.4 0.0-1.0 10^3/uL Eosinophils # (Auto) 0.1 0.0-0.3 10^3/uL Basophils # (Auto) 0.1 0.0-0.1 10^3/uL Immature Granulocyte # (Auto) 0.0 0.0-0.1 10^3/uL Sodium Level 138 135-145 MMOL/L Potassium Level 4.2 3.6-5.0 MMOL/L Chloride Level 104 98-107 MMOL/L Carbon Dioxide Level 21 21-32 MMOL/L Anion Gap 13 5-14 MMOL/L Blood Urea Nitrogen 16 7-18 MG/DL Creatinine 1.49 H 0.60-1.30 MG/DL Estimat Glomerular Filtration Rate 60 BUN/Creatinine Ratio 11 Glucose Level 111 H 70-105 MG/DL Calcium Level 9.4 8.5-10.1 MG/DL Corrected Calcium 8.5-10.1 MG/DL Total Bilirubin 1.1 H 0.1-1.0 MG/DL Aspartate Amino Transf (AST/SGOT) 40 H 5-34 U/L Alanine Aminotransferase (ALT/SGPT) 58 H 0-55 U/L Alkaline Phosphatase 68 40-136 U/L Total Protein 7.6 6.4-8.2 GM/DL Albumin 4.7 H 3.2-4.5 GM/DL Serum Alcohol < 10 <10 MG/DL My Orders Orders - GRABIEL LE MD Alcohol (06/27/23 04:34) Cbc With Automated Diff (06/27/23 04:34) Comprehensive Metabolic Panel (06/27/23 04:34) Ed Iv/Invasive Line Start (06/27/23 04:34) Ct Head/Cervical Spine Wo (06/27/23 04:42) Ondansetron Injection (Ondansetron Inj (06/27/23 05:15) Ketorolac Injection (Ketorolac Injection (06/27/23 06:45) Medications Given in ED Vital Signs/I&O 06/27/23 06/27/23 06/27/23 06/27/23 04:22 04:22 04:22 06:54 Temp 36.8 36.8 36.8 Pulse 80 80 73 Resp 16 16 16 B/P (MAP) 189/117 (141) 189/117 (141) 136/94 Pulse Ox 99 99 99 O2 Delivery Room Air Room Air Room Air Room Air Capillary Refill : Less Than 3 Seconds Blood Pressure Mean: 141 Progress Note : Progress Note CT head and cervical spine was viewed by me. No acute injuries were identified. Radiologist's report was also reviewed and noted no acute injuries. C-collar was cleared after review of CT reports. Basic labs were also obtained and interpreted by me. CBC was grossly unremarkable. Creatinine and transaminases were mildly elevated. Patient was encouraged to increase water consumption and decrease alcohol consumption. Concussion recovery instructions and precautions were reviewed. See discharge instructions for further discussion. Diagnostic Imaging Diagonstic Imaging: CT Plain Films/CT/US/NM/MRI: c-spine, head Comments NAME: SORAYA KEATING [facility] REC#: [id number] PT STATUS: DEP ER : 1980 PHYSICIAN: GRABIEL LE MD ADMIT DATE: 06/27/23/ER Signed Date of Exam:06/27/23 CT HEAD/CERVICAL SPINE WO PROCEDURE: CT head and CT cervical spine without contrast. TECHNIQUE: Multiple contiguous axial images were obtained through the brain and cervical spine without the use of intravenous contrast. Sagittal and coronal reformations through the cervical spine were then performed. Auto Exposure Controls were utilized during the CT exam to meet ALARA standards for radiation dose reduction. INDICATION: Trauma, fall from bed, injury to the back of the head and neck COMPARISON: CT head from 02/12/2015 FINDINGS: The ventricles and cortical sulci appear age-appropriate. There is no midline shift or mass effect. No acute intracranial hemorrhage is seen. There is no CT evidence of acute territorial ischemia. The calvarium appears intact. Visualized paranasal sinuses are clear. Alignment of the cervical spine demonstrates no spondylolisthesis. Resolution of the reformatted images is decreased. There are mild degenerative changes in the cervical spine, most notable at C5-C6. No acute fracture is seen. Surrounding soft tissues demonstrate no acute abnormality. IMPRESSION: 1. No acute intracranial hemorrhage or calvarium fracture. 2. No acute fracture seen in the cervical spine. There is no [facility] report. Dictated by: Dictated on workstation # [id number] Dict: 06/27/23 0559 Trans: 06/27/23 1051 [id number] [id number] Interpreted by: SUZIE CHONG MD Electronically signed by: SUZIE CHONG MD 06/27/23 1051 Departure Impression Primary Impression: Concussion Qualified Codes: S06.0X0A - Concussion without loss of consciousness, initial encounter Additional Impression: Fall from bed Qualified Codes: W06.XXXA - Fall from bed, initial encounter Disposition: HOME, SELF-CARE Condition: Improved Departure-Patient Inst. Decision time for Depature: 06:30 Referrals: SERGIO CORONA DO (PCP/Family) Primary Care Physician Patient Instructions: Concussion in adults Add. Discharge Instructions: Drink plenty of clear liquids to stay well-hydrated. You may take your usual diclofenac for pain control. You may add Tylenol (acetaminophen) up to 1000 mg every 6 hours as needed. Observe physical and cognitive rest for today. Then gradually increase level of activity as symptoms allow. If any activity causes worsening of concussion symptoms such as headache, confusion, vision changes, nausea, irritability, etc., stop that activity and rest. Avoid any activities that would predispose you to further head injury for at least 1 week after your concussion symptoms resolve. Return to the emergency room if you have worsening symptoms despite following these instructions. All discharge instructions reviewed with patient and/or family. Voiced understanding. Copy Copies To 1: SERGIO CORONA JOSHUA T MD Jun 27, 2023 05:04
[2023-06-27 05:09] LABS: BASOPHILS # (AUTO) 0.1 10^3/uL (0.0-0.1); BASOPHILS % (AUTO) 1 % (0-10); EOSINOPHILS # (AUTO) 0.1 10^3/uL (0.0-0.3); EOSINOPHILS % (AUTO) 2 % (0-10); HEMATOCRIT 38 % (40-54); HEMOGLOBIN 13.9 g/dL (13.3-17.7); LYMPHOCYTES # (AUTO) 2.1 10^3/uL (1.0-4.0); LYMPHOCYTES % (AUTO) 37 % (12-44); MEAN CORPUSCULAR HEMOGLOBIN 31 pg (25-34); MEAN CORPUSCULAR HGB CONC 37 g/dL (32-36); MEAN CORPUSCULAR VOLUME 86 fL (80-99); MEAN PLATELET VOLUME 9.2 fL (9.0-12.2); MONOCYTES # (AUTO) 0.4 10^3/uL (0.0-1.0); MONOCYTES % (AUTO) 7 % (0-12); NEUTROPHILS # (AUTO) 3.1 10^3/uL (1.8-7.8); NEUTROPHILS % (AUTO) 53 % (42-75); PLATELET COUNT 241 10^3/uL (130-400); WHITE BLOOD COUNT 5.8 10^3/uL (4.3-11.0)
[2023-06-27] MEDS ORDERED: ONDANSETRON INJECTION 4 MG/2 ML (SDV) IVP ONE (05:15)
[2023-06-27 05:22] LABS: ALANINE AMINOTRANSFERASE 58 U/L (0-55); ALBUMIN 4.7 GM/DL (3.2-4.5); ALKALINE PHOSPHATASE 68 U/L (40-136); BILIRUBIN,TOTAL 1.1 MG/DL (0.1-1.0); BUN/CREATININE RATIO 11; CALCIUM 9.4 MG/DL (8.5-10.1); CARBON DIOXIDE 21 MMOL/L (21-32); CHLORIDE 104 MMOL/L (98-107); CREATININE SERUM 1.49 MG/DL (0.60-1.30); GFR ESTIMATED 60; GLUCOSE 111 MG/DL (70-105); POTASSIUM 4.2 MMOL/L (3.6-5.0); SODIUM 138 MMOL/L (135-145); TOTAL PROTEIN 7.6 GM/DL (6.4-8.2)
--- NOTE | 2023-06-27 06:12 | Diagnostic Imaging Report ---
PROCEDURE: CT head and CT cervical spine without contrast. TECHNIQUE: Multiple contiguous axial images were obtained through the brain and cervical spine without the use of intravenous contrast. Sagittal and coronal reformations through the cervical spine were then performed. Auto Exposure Controls were utilized during the CT exam to meet ALARA standards for radiation dose reduction. INDICATION: Trauma, fall from bed, injury to the back of the head and neck COMPARISON: CT head from 02/12/2015 FINDINGS: The ventricles and cortical sulci appear age-appropriate. There is no midline shift or mass effect. No acute intracranial hemorrhage is seen. There is no CT evidence of acute territorial ischemia. The calvarium appears intact. Visualized paranasal sinuses are clear. Alignment of the cervical spine demonstrates no spondylolisthesis. Resolution of the reformatted images is decreased. There are mild degenerative changes in the cervical spine, most notable at C5-C6. No acute fracture is seen. Surrounding soft tissues demonstrate no acute abnormality. IMPRESSION: 1. No acute intracranial hemorrhage or calvarium fracture. 2. No acute fracture seen in the cervical spine. There is no [facility] report. Dictated by: Dictated on workstation # [id number]
[2023-06-27] MEDS ORDERED: KETOROLAC INJ 30 MG/ML VIAL IVP ONE (06:45)
[2023-06-27 06:54] VITALS: BP 136/94
== END 2023-06-27 06:54 | disposition home or self-care (01) ==
LOC: EDUNIT# 04:11 → ER 04:14
DX: S06.0XAA Concussion with loss of consciousness status unknown, initial encounter (principal); W06.XXXA Fall from bed, initial encounter; W22.8XXA Striking against or struck by other objects, initial encounter
CPT/HCPCS: 70450; 72125; 80053; 85025; G0480; 36415; 80320